=== PATIENT | male | born 1975 | race Caucasian/White ===

== ENCOUNTER → 2018-04-18 | Outpatient (CLI) | payer BC | LOC: FIMAGING 15:58 | PROVIDERS: ATTEND Orthopaedic Surgery Hand Surgery | DX: S42.251A Displaced fracture of greater tuberosity of right humerus, initial encounter for closed fracture (principal); Z01.818 Encounter for other preprocedural examination ==

== ENCOUNTER → 2018-09-15 | Outpatient (CLI) | payer BC | LOC: EMCIMAGING 09:14 | PROVIDERS: ATTEND Orthopaedic Surgery Hand Surgery | DX: Z47.89 Encounter for other orthopedic aftercare (principal); S42.201D Unspecified fracture of upper end of right humerus, subsequent encounter for fracture with routine healing | CPT/HCPCS: 73200-PN ==